=== PATIENT | female | born 1990 | race Caucasian/White ===

== ENCOUNTER 2020-06-05 10:11 | Emergency (ER) | payer OTHER, SELFPAY ==
--- NOTE | 2020-06-05 10:18 | ED.ABDPAIN ---
HPI - Abdominal Pain General Chief Complaint: Abdominal Pain Stated Complaint: abd pain Time Seen by Provider: 06/05/20 10:18 History of Present Illness HPI narrative: Intermittent lower abdominal pain for the past 2 weeks. Severe since earlier this evening. Associated with diarrhea and nausea. Seen at a hospital out of town a few days ago and had labs and CT, which she believes were normal. No fever, chills, hematuria, dysuria Related Data Home Medications Medication Instructions Recorded Confirmed etonogestrel 68 mg subdermal 1 implant SUBDERMAL ONCE 06/09/20 implant omeprazole 20 mg tablet,delayed 20 mg PO DAILY 06/09/20 06/09/20 release Allergies Allergy/AdvReac Type Severity Reaction Status Date / Time No Known Allergies Allergy Unknown Verified 06/09/20 08:42 Review of Systems Review of Systems: All systems reviewed & are unremarkable except as noted in HPI and below Constitutional: Constitutional: Denies fever(s) ENT: Denies sore throat Cardiovascular: Cardiovascular: Denies chest pain Respiratory: Respiratory: Denies dyspnea Gastrointestinal: Gastrointestinal: Reports abdominal pain, Reports diarrhea and Reports nausea Genitourinary: Genitourinary: Denies hematuria, Denies dysuria and Denies vaginal discharge Musculoskeletal: Musculoskeletal: Denies back pain Neurologic: Denies weakness [facility] Past Medical History Medical History Acute rheumatic arthritis Anxiety Fibromyalgia GERD (gastroesophageal reflux disease) PTSD (post-traumatic stress disorder) Surgical History Surgical History History of tonsillectomy Family History Family History Father Hypertension Malignant neoplasm of prostate Mother Hypertension Sibling Hypertension Social History Social History Smoking status: Never smoker Second hand tobacco smoke exposure: No Alcohol intake: never Substance use: current Substance use type: marijuana Gender identity (if verbalized by the patient): Female Spiritual care concerns: No Agree to blood products: Yes Exam Const: General: no acute distress and alert Orientation/consciousness: patient oriented x3 HENMT: Head: normal to inspection Chest: Chest palpation & inspection: normal inspection of the chest Resp: Effort & Inspection: normal respiratory effort Auscultation: clear to auscultation bilaterally Cardio: Rate: regular rate Rhythm: regular rhythm GI: GI Palp: Yes Soft to palpation and No Tenderness to palpation present (GI) Skin: General skin exam: normal color Neuro: General: patient oriented x3, moves all extremities, no focal motor deficits and CN's II-XI intact bilaterally Speech: Abnormal speech present Extrem: General: normal to inspection Psych: Affect: Anxious affect present Course Vital Signs Vital signs: Vital Signs Temperature 36.9 C 06/05/20 10:30 Pulse Rate 82 06/05/20 10:30 Respiratory Rate 17 06/05/20 10:30 Blood Pressure 149/89 H 06/05/20 10:30 Pulse Oximetry 100 06/05/20 10:30 Temperature 36.9 C 06/05/20 10:30 Pulse Rate 76 06/05/20 11:43 Respiratory Rate 18 06/05/20 11:43 Blood Pressure 136/94 H 06/05/20 11:43 Pulse Oximetry 99 06/05/20 11:43 MDM - Abdominal Pain Differential Diagnosis Differential diagnosis: Likely gastroenteritis, pancreatitis and other (UTI, IBS) Medical Records Attestation: I reviewed the patient's medical records. Lab Data Attestation: I reviewed the patient's lab results. Result diagrams: 06/05/20 10:28 06/05/20 10:28 Labs: Lab Results 06/05/20 06/05/20 06/05/20 Range/Units 10:28 10:28 10:28 WBC 10.4 H (4.5-10.0) K/mm3 RBC 4.95 (4.2-5.4) M/mm3 Hgb 15.2 H (1
[2020-06-05 10:30] VITALS: BP 149/89; PULSE 82; RESP 17; TEMP 36.9; O2SAT 100
[2020-06-05 10:40] LABS: Basophils Absolute Auto 0.1 K/mm3 (0.0-0.1); Basophils Percent Auto 0.9 % (0.2-1.2); Eosinophils Absolute Auto 0.1 K/mm3 (0-0.3); Eosinophils Percent Auto 1.2 % (0-4.4); Hematocrit 43.7 % (37.0-47.0); Hemoglobin 15.2 g/dL (12.0-15.0); Immature Granulocyte Absolute 0.04 K/mm3 (0.00-0.031); Immature Granulocyte Percent A 0.4 % (0-0.5); Lymphocytes Absolute Auto 2.41 K/mm3 (0.9-3.2); Lymphocytes Percent Auto 23.1 % (18.3-44.2); Mean Corpuscular HGB Conc 34.8 g/dl (32-36); Mean Corpuscular Hemoglobin 30.7 pg (26-34); Mean Corpuscular Volume 88.3 fl (80-100); Mean Platelet Volume 9.4 fl (7.4-10.4); Monocytes Absolute Auto 0.8 K/mm3 (0.1-0.6); Neutrophils Absolute Auto 6.9 K/mm3 (1.3-6.7); Neutrophils Percent Auto 66.4 % (45.5-73.1); Platelet Count Result 352 k/mm3 (150-375); Red Blood Count 4.95 M/mm3 (4.2-5.4); Red Cell Distribution Width 11.9 % (11.5-14.5); White Blood Count 10.4 K/mm3 (4.5-10.0)
[2020-06-05 10:43] LABS: Add Urine Microscopic? YES; Appearance Urine Cloudy (Clear); Bacteria Urine 1+ /hpf; Bilirubin Urine Negative (Negative); Blood Urine 2+ (Negative); Color Urine Yellow (Yellow); Glucose Urine UA Negative (Negative); Ketones Urine 1+ mg/dL (Negative); Leukocyte Esterase Ur Trace LEU/UL (Negative); Mucus Urine Heavy /lpf; Nitrate Urine Negative (Negative); Protein Urine Negative (Negative); RBC Urine 0-2 /hpf (0-2); Specific Grav Ur 1.018 (1.001-1.035); Squamous Epithelial Cell Urine Many /hpf (Few); Urobilinogen Urine Negative mg/dL (<2.0)
[2020-06-05 10:52] LABS: Alanine Aminotransferase 62 U/L (4-35); Albumin Level 4.7 g/dL (3.5-5.1); Alkaline Phosphatase 109 U/L (38-126); Anion Gap 12 mmol/L (8-16); Aspartate Amino Transferase 34 U/L (14-36); Bilirubin,Total 0.7 mg/dL (0.2-1.3); Blood Urea Nitrogen 7 mg/dL (7-17); Calcium 9.8 mg/dL (8.4-10.2); Carbon Dioxide 26 mmol/L (22-30); Chloride 103 mmol/L (98-107); Estimated CRCL calculation 112 ml/min; Estimated Glomerular Filt Rate > 60; Glucose 94 mg/dL (65-105); Lipase 40 U/L (23-300); Potassium 3.8 mmol/L (3.4-5.0); Sodium 141 mmol/L (137-145)
[2020-06-05] MEDS: ONDANSETRON INJ 4 MG/2 ML VIAL IV PUSH (10:57)
[2020-06-05] MEDS: DICYCLOMINE HCL INJ 20 MG/2 ML VIAL IM (10:57)
[2020-06-05] MEDS: LOPERAMIDE HCL 2 MG CAPSULE 4 MG PO (10:57)
[2020-06-05] MEDS: SODIUM CHLORIDE 0.9% IV 1,000 ML 999 ML IV CONT (10:58)
[2020-06-05] MEDS: NITROFURANTOIN MONOHYD MACROCR 100 MG CAP PO (11:37)
[2020-06-05 11:43] VITALS: BP 136/94; PULSE 76; RESP 18; O2SAT 99
--- NOTE | 2020-06-12 11:27 | PC.NURSE ---
LATE ENTRY This note is being entered to document information to the patient's record. The following information was omitted on [06/05/2020], by [ella]. ns complete at 1159.
== END 2020-06-05 11:44 | disposition home or self-care (01) ==
PROVIDERS: Emergency Provider Emergency Medicine
DX: N39.0 Urinary tract infection, site not specified (principal); M06.9 Rheumatoid arthritis, unspecified; M79.7 Fibromyalgia; K21.9 Gastro-esophageal reflux disease without esophagitis
CPT/HCPCS: 36415; 80053; 81001; 81025; 83690; 85025; 96361; 96372; 96374; 99284; A9270; J0500; J2405; J7030

== ENCOUNTER 2020-06-08 17:10 | Emergency (ER) | payer OTHER, SELFPAY ==
--- NOTE | ~2020-06-08 | CT_ITS ---
EXAMINATION: CT abdomen pelvis w con DATE: 06/08/2020 19:03 INDICATION: Left lower quadrant abdominal pain. TECHNIQUE: Computed tomography (CT) of the abdomen and pelvis was performed with 100 mL Omnipaque-350 intravenous contrast. Automated exposure control and iterative reconstruction technique were employe d. The dose-length product was 1283.30 mGy-cm. COMPARISON: None FINDINGS: Lung bases are clear. Heart size is normal. No pericardial or pleural effusion. Liver, gallbladder, s pleen, pancreas, bilateral adrenal glands are normal. A couple 1-2 mm nonobstructing stones in an inf erior calyx of the right kidney. 3 mm at least partially obstructing stone at the left ureterovesicul ar junction with mild left hydroureteronephrosis. There is some urothelial enhancement along the left ureter which could be reactive related to the stone passage or due to ascending urinary tract infect ion. Bladder, anteverted uterus and bilateral adnexa are unremarkable. Bowels including the appendix are normal. No free intraperitoneal gas or fluid. No pathologically enlarged abdominal or pelvic lymp hadenopathy. Mild thoracolumbar spondylosis with chronic appearing mild anterior wedging at T11 and T 12. IMPRESSION: 1. Bilateral nephrolithiasis with at least partially obstructing 3 mm stone at the left ureterovesicu lar junction with mild left hydronephrosis. Correlate with urinalysis to exclude associated ascending urinary tract infection. Reviewed, dictated and finalized at location A. T END ALIGNMENT SPECIALIST IMPRESSION: 1. Bilateral nephrolithiasis with at least partially obstructing 3 mm stone at the left ureterovesicular junction with mild left hydronephrosis. Correlate wit h urinalysis to exclude associated ascending urinary tract infection.
[2020-06-08 17:30] VITALS: BP 146/96; PULSE 81; RESP 18; TEMP 35.8; O2SAT 100
[2020-06-08] MEDS: SODIUM CHLORIDE 0.9% IV 1,000 ML 150 ML IV CONT (18:11)
[2020-06-08] MEDS: MORPHINE SULFATE (*CRX) 4 MG/ML INJ IV PUSH (18:11)
[2020-06-08 18:17] LABS: Basophils Percent Auto 0.4 % (0.2-1.2); Eosinophils Absolute Auto 0.1 K/mm3 (0-0.3); Eosinophils Percent Auto 0.6 % (0-4.4); Hematocrit 43.1 % (37.0-47.0); Hemoglobin 15.1 g/dL (12.0-15.0); Immature Granulocyte Absolute 0.09 K/mm3 (0.00-0.031); Immature Granulocyte Percent A 0.8 % (0-0.5); Lymphocytes Absolute Auto 1.69 K/mm3 (0.9-3.2); Mean Corpuscular Hemoglobin 30.5 pg (26-34); Mean Corpuscular Volume 87.1 fl (80-100); Mean Platelet Volume 9.7 fl (7.4-10.4); Monocytes Absolute Auto 0.7 K/mm3 (0.1-0.6); Monocytes Percent Auto 6.2 % (2.6-8.5); Neutrophils Absolute Auto 8.7 K/mm3 (1.3-6.7); Platelet Count Result 340 k/mm3 (150-375); Red Blood Count 4.95 M/mm3 (4.2-5.4); Red Cell Distribution Width 11.9 % (11.5-14.5); White Blood Count 11.3 K/mm3 (4.5-10.0)
[2020-06-08 18:28] LABS: Alanine Aminotransferase 66 U/L (4-35); Albumin Level 4.8 g/dL (3.5-5.1); Alkaline Phosphatase 110 U/L (38-126); Anion Gap 13 mmol/L (8-16); Aspartate Amino Transferase 44 U/L (14-36); Bilirubin,Total 0.6 mg/dL (0.2-1.3); Blood Urea Nitrogen 6 mg/dL (7-17); Carbon Dioxide 22 mmol/L (22-30); Chloride 103 mmol/L (98-107); Estimated CRCL calculation 111 ml/min; Estimated Glomerular Filt Rate > 60; Glucose 115 mg/dL (65-105); Lipase 43 U/L (23-300); Potassium 3.2 mmol/L (3.4-5.0); Sodium 138 mmol/L (137-145)
[2020-06-08 18:32] LABS: Lactic Acid Reflex 2.4 mmol/L (0.7-2.1)
[2020-06-08 18:44] LABS: Add Urine Microscopic? YES; Appearance Urine Cloudy (Clear); Bacteria Urine 1+ /hpf; Bilirubin Urine Negative (Negative); Blood Urine 3+ (Negative); Color Urine Red (Yellow); Glucose Urine UA Negative (Negative); Ketones Urine 2+ mg/dL (Negative); Leukocyte Esterase Ur Trace LEU/UL (Negative); Mucus Urine Few /lpf; Nitrate Urine Negative (Negative); Protein Urine 2+ mg/dL (Negative); RBC Urine >75 /hpf (0-2); Specific Grav Ur 1.014 (1.001-1.035); Squamous Epithelial Cell Urine Few /hpf (Few); Urobilinogen Urine Negative mg/dL (<2.0)
[2020-06-08 19:32] VITALS: BP 146/84; PULSE 84; RESP 16; O2SAT 99
--- NOTE | 2020-06-08 19:39 | ED.ABDPAIN ---
HPI - Abdominal Pain General Chief Complaint: Abdominal Pain Stated Complaint: abd pain/recent uti Time Seen by Provider: 06/08/20 17:42 Source: patient Mode of arrival: ambulatory Limitations: no limitations History of Present Illness HPI narrative: 30-year-old with a history of fibromyalgia here with complaints of left-sided abdominal pain on and off for past few days however today the pain got intense she states that the pain is mostly in the left lower abdomen. She denies any nausea, vomiting. No history of blood in the stool or in the urine. She states that she has been having diarrhea on and off for past few days. MD elicited complaint: abdominal pain Onset (ago): day(s) (1) Location: LLQ Severity: moderate Quality: cramping and aching Radiation: none Migration to: no migration Exacerbating factors: nothing Relieving factors: nothing Related Data Allergies Allergy/AdvReac Type Severity Reaction Status Date / Time No Known Allergies Allergy Unknown Verified 06/08/20 17:37 Review of Systems Review of Systems: All systems reviewed & are unremarkable except as noted in HPI and below Constitutional: Constitutional: Reports no additional constitutional complaints Cardiovascular: Cardiovascular: Reports no additional cardiovascular complaints Respiratory: Respiratory: Reports no additional respiratory complaints Gastrointestinal: Gastrointestinal: Reports as per HPI Genitourinary: Genitourinary: Reports no additional female genitourinary complaints Musculoskeletal: Musculoskeletal: Reports no additional musculoskeletal complaints Neurologic: Reports system reviewed and no additional complaints, except as documented PMFSH Past Medical History Medical History Acute rheumatic arthritis Fibromyalgia GERD (gastroesophageal reflux disease) Surgical History Surgical History History of tonsillectomy Social History Social History Smoking status: Never smoker Gender identity (if verbalized by the patient): Female Exam Narrative: Exam Narrative: GENERAL: Well-appearing, well-nourished, and in no acute distress. HEAD: Normocephalic, atraumatic. EYES: PERRLA and EOMI. NECK: Supple. CHEST: Clear to auscultation. No respiratory distress. HEART: Regular rate and rhythm. No murmur heard. Normal peripheral pulses. ABDOMEN: Soft, Mild tenderness in the left lower quadrant , nondistended, normal active bowel sounds. EXTREMITIES: Normal range of motion. No edema. SKIN: Warm, dry, no rash. NEURO: No focal deficits. Alert and oriented x3. PSYCH: Normal mood and affect. Course Course Emergency Course: Patient states her pain is much improved with morphine. I have discussed labs and CT findings with the patient. With however she still continues to have mild amount of pain I will give her IV Toradol 30 mg. Advised her to drink plenty of fluids take pain medication as prescribed Vital Signs Vital signs: Vital Signs Temperature 35.8 C L 06/08/20 17:30 Pulse Rate 81 06/08/20 17:30 Respiratory Rate 18 06/08/20 17:30 Blood Pressure 146/96 H 06/08/20 17:30 Pulse Oximetry 100 06/08/20 17:30 Temperature 35.8 C L 06/08/20 17:30 Pulse Rate 84 06/08/20 19:32 Respiratory Rate 16 06/08/20 19:32 Blood Pressure 146/84 H 06/08/20 19:32 Pulse Oximetry 99 06/08/20 19:32 MDM - Abdominal Pain Lab Data Result diagrams: 06/08/20 18:09 06/08/20 18:09 Labs: Lab Results 06/08/20 06/08/20 06/08/20 Range/Units 18:09 18:09 18:09 WBC 11.3 H (4.5-10.0) K/mm3 RBC 4.95 (4.2-5.4) M/mm3 Hgb 15.1 H (12.0-15.0) g/dL Hct 43.1 (37.0-47.0) % MCV 87.1 (80-100) fl MCH 30.5 (26-34) pg MCHC 35.0 (32-36) g/dl RDW 11.9 (11.5-14.5) % Plt Count 340 (150-375) k/mm3 MPV 9.7 (7
[2020-06-08] MEDS: KETOROLAC 30 MG/ML VIAL (*BKC) IV PUSH (19:55)
[2020-06-08 21:15] LABS: Reflex Lactic Acid Yes or No Add Lactic
== END 2020-06-08 20:09 | disposition home or self-care (01) ==
PROVIDERS: Emergency Provider Family Medicine; PCP Family Medicine
DX: N13.2 Hydronephrosis with renal and ureteral calculous obstruction (principal); M79.7 Fibromyalgia; M06.9 Rheumatoid arthritis, unspecified; K21.9 Gastro-esophageal reflux disease without esophagitis
CPT/HCPCS: 36415; 74177; 80053; 81001; 81025; 83605; 83690; 85025; 87086; 96374; 96375; 99284; J1885; J2270; J7030; Q9967

== ENCOUNTER 2020-07-17 12:35 | Outpatient (CLI) | payer OTHER, SELFPAY ==
[2020-07-17 14:15] LABS: Iron 130 ug/dL (37-170)
[2020-07-17 14:24] LABS: Percent Iron Saturation 30 % (20-50)
[2020-07-20 21:25] LABS: Ceruloplasmin 35 mg/dL (18-53)
[2020-07-21 22:22] LABS: Mitochondrial (M2) Ab (IgG) <=20.0 U (<=20.0)
== END 2020-07-17 12:36 | disposition home or self-care (01) ==
LOC: ANHLAB 12:39
PROVIDERS: PCP Family Medicine; Visit Provider Nurse Practitioner Family
DX: R79.89 Other specified abnormal findings of blood chemistry (principal)
CPT/HCPCS: 36415; 82104; 82390; 82728; 83520; 83540; 83550; 86038

== ENCOUNTER 2020-08-15 10:55 | Outpatient (CLI) | payer OTHER, SELFPAY ==
--- NOTE | ~2020-08-15 | US_ITS ---
EXAMINATION: US abdomen complete DATE: 08/15/2020 11:24 INDICATION: Abdominal pain TECHNIQUE: Multiple grayscale and Doppler ultrasound images of the abdomen were obtained. COMPARISON: CT, 06/08/2020 FINDINGS: The head and body of the pancreas are normal. The pancreatic tail is obscured by bowel gas. The liver is normal with normal echogenicity and echotexture. No surface nodularity. Normal hepatope zach flow in the main portal vein. The gallbladder is normal with no abnormal wall thickening, pericho lecystic fluid or stones. The normal common bile duct measures 6 mm. There was no sonographic Blackmon sign. The visualized portions of the aorta and inferior vena cava are normal. The right kidney measures 11.4 x 4.9 x 7.2 cm. The left kidney measures 11.1 x 5.4 x 5.7 cm. The kidn eys demonstrate normal parenchymal echogenicity. There is no hydronephrosis. The spleen is normal in appearance and measures 12.5 cm. IMPRESSION: 1. No sonographic correlate for the patient's symptoms. Reviewed, dictated and finalized at location A. OLOGY ASSISTANT
[2020-08-15 11:32] LABS: Basophils Absolute Auto 0.1 K/mm3 (0.0-0.1); Basophils Percent Auto 0.8 % (0.2-1.2); Eosinophils Absolute Auto 0.1 K/mm3 (0-0.3); Eosinophils Percent Auto 1.2 % (0-4.4); Hematocrit 41.9 % (37.0-47.0); Hemoglobin 14.3 g/dL (12.0-15.0); Immature Granulocyte Absolute 0.03 K/mm3 (0.00-0.031); Immature Granulocyte Percent A 0.4 % (0-0.5); Lymphocytes Percent Auto 28.3 % (18.3-44.2); Mean Corpuscular HGB Conc 34.1 g/dl (32-36); Mean Corpuscular Hemoglobin 30.4 pg (26-34); Mean Platelet Volume 9.1 fl (7.4-10.4); Monocytes Absolute Auto 0.7 K/mm3 (0.1-0.6); Monocytes Percent Auto 8.1 % (2.6-8.5); Neutrophils Absolute Auto 5.2 K/mm3 (1.3-6.7); Neutrophils Percent Auto 61.2 % (45.5-73.1); Platelet Count Result 303 k/mm3 (150-375); Red Blood Count 4.71 M/mm3 (4.2-5.4); Red Cell Distribution Width 12.2 % (11.5-14.5); White Blood Count 8.5 K/mm3 (4.5-10.0)
[2020-08-15 11:46] LABS: Alanine Aminotransferase 39 U/L (4-35); Albumin Level 4.7 g/dL (3.5-5.1); Alkaline Phosphatase 86 U/L (38-126); Anion Gap 7 mmol/L (8-16); Aspartate Amino Transferase 29 U/L (14-36); Bilirubin,Total 0.7 mg/dL (0.2-1.3); Blood Urea Nitrogen 9 mg/dL (7-17); Calcium 9.8 mg/dL (8.4-10.2); Carbon Dioxide 30 mmol/L (22-30); Chloride 105 mmol/L (98-107); Estimated Glomerular Filt Rate > 60; Glucose 92 mg/dL (65-105); Lipase 30 U/L (23-300); Sodium 142 mmol/L (137-145)
== END 2020-08-15 10:56 | disposition home or self-care (01) ==
PROVIDERS: PCP Family Medicine; Visit Provider Family Medicine
DX: R10.9 Unspecified abdominal pain (principal)
CPT/HCPCS: 36415; 76700; 80053; 83690; 85025

== ENCOUNTER 2020-08-18 11:29 | Outpatient (CLI) | payer OTHER, SELFPAY ==
--- NOTE | ~2020-08-18 | NM_ITS ---
. EXAMINATION: NM hepatobiliary w pharm DATE: 08/18/2020 13:46 INDICATION: Right upper quadrant abdominal pain. COMPARISON: Ultrasound 08/15/2020 TECHNIQUE: 5.048 mCi Tc-99m mebrofenin (Choletec) was administered intravenously. Scintigraphic imag es of the abdomen were obtained for one hour. Then, 1.6 mcg sincalide (Kinevac) IV was administered, and imaging was continued for 30 minutes. FINDINGS: There is normal clearance of radiotracer from the blood pool. There is homogeneous tracer u ptake by the liver. Activity progresses to the bowel and gallbladder. Gallbladder ejection fraction (GBEF) was 38%. Note that most patients with gallbladder dysfunction have GBEF < 35%, which overlaps with the broad normal range of 10-90%. IMPRESSION: 1. Normal hepatobiliary scintigraphy. Reviewed, dictated and finalized at location A. MONIA BOX OPERATOR
== END 2020-08-18 11:30 | disposition home or self-care (01) ==
PROVIDERS: PCP Family Medicine; Visit Provider Family Medicine
DX: R10.11 Right upper quadrant pain (principal); R11.10 Vomiting, unspecified
CPT/HCPCS: 78227; A9537; J2805

== ENCOUNTER → 2020-08-26 05:53 | Outpatient (CLI) | payer OTHER, SELFPAY ==
[2020-08-26 19:10] LABS: SARS-CoV-2 RNA PCR Negative
== END ==
PROVIDERS: Family Provider Internal Medicine; PCP Family Medicine; Visit Provider Internal Medicine Gastroenterology
DX: Z01.812 Encounter for preprocedural laboratory examination (principal); Z20.822 Contact with and (suspected) exposure to COVID-19
CPT/HCPCS: C9803; U0003; U0005

== ENCOUNTER 2020-08-29 00:17 | Day surgery (SDC) | payer OTHER, SELFPAY ==
[2020-08-07 09:55] VITALS: BMI 36.3
[2020-08-29 08:04] VITALS: BP 138/92; PULSE 105; RESP 16; TEMP 37.3; O2SAT 96; BMI 35.3
--- NOTE | 2020-08-29 08:17 | WPDANESEPPF ---
Anes - Initial Pre Proc Eval Procedure: Operation Date: 08/29/20 09:00 Proposed Procedures p Esophagogastroduodenoscopy & Colonoscopy - Zhang Gasca MD Date/Time: 08/29/20 08:17 Surgeon: Zhang Gasca MD Pre Op Diagnosis: GERD, Diarrhea, Weight loss, Abd Pain Patient Data Age: 30 Gender: F Height: 5 ft 6 in Weight: 99.3 kg Last Vital Signs Temp 37.3 C 08/29/20 08:04 Pulse 105 H 08/29/20 08:04 Resp 16 08/29/20 08:04 BP 138/92 H 08/29/20 08:04 Pulse Ox 96 08/29/20 08:04 Allergies Allergy/AdvReac Type Severity Reaction Status Date / Time No Known Allergies Allergy Unknown Verified 08/29/20 08:01 Home Medications Medication Instructions Recorded Confirmed Type etonogestrel 68 mg subdermal 1 implant SUBDERMAL ONCE 06/09/20 08/07/20 History implant omeprazole 20 mg tablet,delayed 20 mg PO DAILY #30 tablet 07/17/20 08/07/20 Rx release sodium,potassium,mag sulfates See Rx Instructions .ROUTE 07/27/20 Rx [Suprep Bowel Prep Kit] .COMPLEX #1 ml wheat dextrin [Benefiber (wheat 1 g PO DAILY 08/07/20 08/07/20 History dextrin)] Patient hx anesthesia problems: post op nausea/vomiting Family hx anesthesia problems: none PMFSH Past Medical History Medical History Acute rheumatic arthritis Anxiety Fibromyalgia GERD (gastroesophageal reflux disease) PTSD (post-traumatic stress disorder) Weight loss Surgical History Surgical History History of tonsillectomy Family History Family History Father Hypertension Malignant neoplasm of prostate Mother Hypertension Sibling Hypertension Social History Social History Smoking status: Never smoker Second hand tobacco smoke exposure: No Alcohol intake: never Substance use: current Substance use type: marijuana Last use: 08/06/20 Living arrangements: alone Gender identity (if verbalized by the patient): Female Spiritual care concerns: No Agree to blood products: Yes Anes - Eval Final PreProcedure Day of Procedure 08/29/20 08:17 Patient weight: obese Heart: regular rate and rhythm Lungs: clear to auscultation Airway: Mallampati scale class 1 Neurological: alert and oriented Last oral intake: >/= 8 hours ASA classification: III Emergent: no Anesthetic plan: proceed Anesthesia type and monitoring: general GIVS and standard monitoring Informed Consent: The patient's anesthetic plan and its attendant risks and benefits were discussed with the patient/family/POA. Questions were solicited and answers provided to the satisfaction of the patient/family/POA.
[2020-08-29] MEDS: LACTATED RINGERS 1,000 ML 150 ML IV CONT (08:18)
--- NOTE | 2020-08-29 08:44 | PM.HPGS ---
History of Present Illness History of Present Illness Consent: Risks, benefits, and alternatives have been discussed and questions answered. Patient agrees to proceed with procedure. Chief complaint: GERD, Diarrhea, Weight loss, Abd Pain Narrative: Ankita Pires is a 30 year old female with more nausea and vomiting, also loose stools. HIDA scan and CT Scan a/p unremarkable, serology for celiac negative. Also mild elevated liver enzymes with negative work up. Review of Systems Constitutional: Constitutional: Denies headache(s) and Denies weakness Eyes: Eyes: Denies blurry vision ENT: Reports Normal hearing present, Denies headache(s) and Denies neck pain Cardiovascular: Cardiovascular: Denies chest pain and Denies dyspnea Respiratory: Respiratory: Denies dyspnea Gastrointestinal: Gastrointestinal: Reports no additional gastrointestinal complaints Genitourinary: Genitourinary: Denies dysuria Musculoskeletal: Musculoskeletal: Denies neck pain Integumentary/Breasts: Skin/Breast: Denies dry skin Neurologic: Reports Normal hearing present, Denies headache(s) and Denies weakness Psychiatric: Psychiatric: Denies anxiety Endocrine: Endocrine: Denies change in body appearance Hematologic/Lymphatic: Hematologic/Lymphatic: Denies easy bleeding Allergic/Immunologic: Allergic/Immunologic: Denies urticaria PMFSH Past Medical History Medical History Acute rheumatic arthritis Anxiety Fibromyalgia GERD (gastroesophageal reflux disease) PTSD (post-traumatic stress disorder) Weight loss Surgical History Surgical History History of tonsillectomy Family History Family History Father Hypertension Malignant neoplasm of prostate Mother Hypertension Sibling Hypertension Social History Social History Smoking status: Never smoker Second hand tobacco smoke exposure: No Alcohol intake: never Substance use: current Substance use type: marijuana Last use: 08/06/20 Living arrangements: alone Gender identity (if verbalized by the patient): Female Spiritual care concerns: No Agree to blood products: Yes Meds Home Medications and Allergies Home Medications Medication Instructions Recorded Confirmed Type etonogestrel 68 mg subdermal 1 implant SUBDERMAL ONCE 06/09/20 08/07/20 History implant omeprazole 20 mg tablet,delayed 20 mg PO DAILY #30 tablet 07/17/20 08/07/20 Rx release sodium,potassium,mag sulfates See Rx Instructions .ROUTE 07/27/20 Rx [Suprep Bowel Prep Kit] .COMPLEX #1 ml wheat dextrin [Benefiber (wheat 1 g PO DAILY 08/07/20 08/07/20 History dextrin)] ondansetron HCl 4 mg tablet 4 mg PO Q8H PRN #90 tablet 08/29/20 Rx Allergies Allergy/AdvReac Type Severity Reaction Status Date / Time No Known Allergies Allergy Unknown Verified 08/29/20 08:01 Vital Signs Vital Signs - 24 hr 08/29/20 08:04 Temperature 99.2 F Pulse Rate 105 H Respiratory Rate 16 Blood Pressure 138/92 H Pulse Oximetry 96 Exam Const: General: comfortable and no acute distress HENMT: General nose exam: Normal nares present Eyes: General: appearance normal, both eyes and all related structures Neck: Neck: no JVD Resp: Auscultation: clear to auscultation bilaterally Cardio: Rate: regular rate Rhythm: regular rhythm GI: Inspection: non-distended GI Palp: Yes Soft to palpation Skin: General skin exam: normal color Neuro: General: gait normal Speech: normal speech Extrem: General: normal to inspection Psych: Mental Status: mental status grossly normal Assessment and Plan Assessment and plan (1) Abdominal pain: Code(s): R10.9 - Unspecified abdominal pain Status: Acute Assessment and Plan: egd and colonoscopy with
[2020-08-29 09:13] VITALS: BP 124/74; PULSE 84; RESP 20; O2SAT 100
[2020-08-29 09:23] VITALS: BP 132/85; PULSE 85; RESP 18; O2SAT 100
[2020-08-29 09:33] VITALS: BP 134/79; PULSE 63; RESP 22; O2SAT 100
== END 2020-08-29 09:48 | disposition home or self-care (01) ==
PROVIDERS: Family Provider Internal Medicine; PCP Family Medicine; Visit Provider Internal Medicine Gastroenterology
PROC: 0DJ08ZZ Inspection of Upper Intestinal Tract, Via Natural or Artificial Opening Endoscopic (ICD-10-PCS; CPT 43235; principal; 2020-08-29 09:00)
DX: R10.9 Unspecified abdominal pain (principal); R19.7 Diarrhea, unspecified; R11.2 Nausea with vomiting, unspecified; K21.9 Gastro-esophageal reflux disease without esophagitis; K44.9 Diaphragmatic hernia without obstruction or gangrene; K57.30 Diverticulosis of large intestine without perforation or abscess without bleeding; K64.8 Other hemorrhoids; M79.7 Fibromyalgia; I00 Rheumatic fever without heart involvement; R63.4 Abnormal weight loss; F41.9 Anxiety disorder, unspecified; F43.10 Post-traumatic stress disorder, unspecified; F12.90 Cannabis use, unspecified, uncomplicated
CPT/HCPCS: 43239; 45380; 88305; C9803; J2704; J7120; U0003; U0005

== ENCOUNTER 2020-09-19 07:45 | Outpatient (CLI) | payer OTHER, SELFPAY ==
--- NOTE | ~2020-09-19 | NM_ITS ---
EXAM: NM gastric emptying study DATE: 09/19/2020 13:20 INDICATION: Nausea and vomiting TECHNIQUE: A gastric emptying study was performed using the methodology of Americo STARKS, et al. J Nucl Med 2007; 48:568-572. The patient was given a meal consisting of 2 scrambled eggs labeled with 0.97 mCi Tc-99m sulfur colloid, 2 slices of toast, two packages of jam, and approximately 120 mL of water. Simultaneous anterior and posterior 1-min images of the abdomen were obtained with the patient supin e at multiple time points over a total period of 4 hours. The geometric mean of anterior and posterio r views was determined, and the percentage retention was calculated for each time point. COMPARISON: None. FINDINGS: Gastric retention of the radiotracer-labeled meal was 71%, 43%, and 19% at the 1-hour, 2-hour, and 4- hour time points, respectively. With this technique, apparent rapid gastric emptying is suggested by <30% gastric retention at 1 hour. Delayed gastric emptying is defined by gastric retention of >90% at 1 hour, >60% retention at 2 hours, or >10% retention at 4 hours. IMPRESSION: 1. Delayed gastric emptying. Reviewed, dictated and finalized at location B.
== END 2020-09-19 07:46 | disposition home or self-care (01) ==
LOC: ANHIMG 07:46
PROVIDERS: PCP Family Medicine; Visit Provider Internal Medicine Gastroenterology
DX: R11.2 Nausea with vomiting, unspecified (principal); R10.9 Unspecified abdominal pain; K30 Functional dyspepsia
CPT/HCPCS: 78264; A9541

== ENCOUNTER 2021-03-15 09:43 | Emergency (ER) | payer OTHER, SELFPAY ==
[2021-03-15 09:54] VITALS: BP 130/91; PULSE 79; RESP 16; TEMP 36.3; O2SAT 100
--- NOTE | 2021-03-15 10:19 | ED.URI ---
HPI - URI/Sore Throat General Chief Complaint: Upper Respiratory Infection Stated Complaint: Congestion,Sore Throat,Fever Source: patient and RN notes reviewed Limitations: no limitations History of Present Illness HPI Narrative: The vaccinated patient, is a non-smoker/nondrinker, presents with a shorter, 2-day history of congestion, measured fever 100.1 associate with mild cough. No sore throat, earache; no loss of taste/smell, CP, vomiting/diarrhea, S OB. Symptoms are mild, worse upon awakening in the morning Related Data Allergies Allergy/AdvReac Type Severity Reaction Status Date / Time No Known Allergies Allergy Unknown Verified 03/15/21 10:09 Review of Systems Review of Systems: The patient has been informed that they may have pre-hypertension or Hypertension based on a BP reading in the department. I recommend that the patient call the primary care provider listed on their discharge instructions or a physician of their choice this week to arrange follow up for further evaluation of possible pre-hypertension or Hypertension General/Constitutional: No weight loss, REPORTS fever Eyes: N0: Redness,discharge Ears/Nose/Throat: No: Epistaxis,ear discharge Respiratory: Denies: Hemoptysis Gastrointestinal: No Vomiting, Bleeding-rectal Skin: No Lumps, eruption Neurologic: No Focal Weakness,Sz Hematologic: Denies: Petechiae/Purpura Psychiatric: No: Suicida ideationl All Other Systems: Reviewed and Negative PMF Past Medical History Medical History Acute rheumatic arthritis Anxiety Fibromyalgia Gastroparesis GERD (gastroesophageal reflux disease) Nausea and vomiting in adult PTSD (post-traumatic stress disorder) Weight loss Surgical History Surgical History History of tonsillectomy Family History Family History Father Hypertension Malignant neoplasm of prostate Mother Hypertension Sibling Hypertension Social History Social History Smoking status: Never smoker Second hand tobacco smoke exposure: No Alcohol intake: never Substance use: current Substance use type: marijuana Last use: 08/06/20 Gender identity (if verbalized by the patient): Female Spiritual care concerns: No Agree to blood products: Yes Comments At time of signature, agree with nursing past medical, surgical, social and family history. There is no relevant family history pertinent to the presenting complaint Exam Narrative: General Appearance: Well appearing, Well nourished EYE: PERRLA, Conjunctiva clear Ears: Auditory canal normal, TM normal Nose: Rhinorrhea, Mucousal erythema Mouth/Throat: MM moist, Uvula midline, Pharyngeal erythema Neck: Supple, No adenopathy Respiratory: No respiratory distress, Breath sounds equal, Clear to auscultation Cardiovascular: RRR, No JVD Musculoskeletal: Non tender, Normal strength Skin: Warm, Dry Neurological: A&O x3, CN II-XII intact Psychiatric: Normal mood, Normal affect Course Vital Signs Vital signs: Vital Signs Temperature 97.3 F L 03/15/21 09:54 Pulse Rate 79 03/15/21 09:54 Respiratory Rate 16 03/15/21 09:54 Blood Pressure 130/91 H 03/15/21 09:54 Pulse Oximetry 100 03/15/21 09:54 Temperature 97.3 F L 03/15/21 09:54 Pulse Rate 79 03/15/21 09:54 Respiratory Rate 16 03/15/21 09:54 Blood Pressure 130/91 H 03/15/21 09:54 Pulse Oximetry 100 03/15/21 09:54 MDM - URI/Sore Throat Lab Data Labs: Lab Results 03/15/21 Range/Units 10:15 POC SARS CoV-2 Ag Negative (Negative) Influenza A Screen Negative Reference Range: Negative Influenza B Screen Negative
== END 2021-03-15 11:29 | disposition home or self-care (01) ==
PROVIDERS: Emergency Provider Emergency Medicine; PCP Family Medicine
DX: R50.9 Fever, unspecified (principal); Z20.822 Contact with and (suspected) exposure to COVID-19; M06.9 Rheumatoid arthritis, unspecified; M79.7 Fibromyalgia; K21.9 Gastro-esophageal reflux disease without esophagitis; K31.84 Gastroparesis
CPT/HCPCS: 87426; 87804; 99213; C9803; G0463

== ENCOUNTER → 2021-03-16 03:28 | Outpatient (CLI) | payer OTHER, SELFPAY ==
[2021-03-16 18:57] LABS: SARS-CoV-2 RNA PCR Negative
== END ==
PROVIDERS: PCP Family Medicine; Visit Provider Emergency Medicine
DX: Z20.822 Contact with and (suspected) exposure to COVID-19 (principal)
CPT/HCPCS: C9803; U0003; U0005

== ENCOUNTER 2021-09-16 11:35 | Emergency (ER) | payer OTHER, SELFPAY ==
[2021-09-16 11:42] VITALS: BP 119/74; PULSE 94; RESP 18; TEMP 36.7; O2SAT 98
--- NOTE | 2021-09-16 12:18 | ED.FEMALEGU ---
HPI - Female Genitourinary General Chief complaint: Urogenital-Female Stated complaint: Possible UTI Time Seen by Provider: 09/16/21 12:06 Source: patient and RN notes reviewed Mode of arrival: ambulatory Limitations: no limitations History of Present Illness HPI Narrative: Patient presents today complaining of 4-day history of dysuria, frequency, lower abdominal cramping intermittently. Denies hematuria, back pain, fever, nausea or vomiting, chills or sweats. She took 2 doses of Azo several days ago without much relief. MD elicited complaint: dysuria Related Data Home Medications Medication Instructions Recorded Confirmed etonogestrel [Nexplanon] 1 implant SUBDERMAL ONCE 09/16/21 09/16/21 Allergies Allergy/AdvReac Type Severity Reaction Status Date / Time No Known Allergies Allergy Unknown Verified 09/16/21 11:52 Review of Systems Review of Systems: CONSTITUTIONAL: Denies body aches, fever, chills, or sweats. EYES: Denies visual changes, redness, or discharge. ENT: Denies rhinorrhea, congestion, sore throat, or otalgia. CARDIOVASCULAR: Denies chest pain, palpitations, or edema. RESPIRATORY: Denies cough or dyspnea. GASTROINTESTINAL: Denies abdominal pain, nausea, vomiting, or diarrhea. GENITOURINARY: Denies hematuria.+ Dysuria, frequency, abdominal cramping SKIN: Denies rash, itching, or wounds. MUSCULOSKELETAL: Denies back pain, joint pain, or myalgia. NEUROLOGIC: Denies headache, numbness, tingling, or weakness. PSYCH: Denies depression or anxiety. [facility] Past Medical History Medical History Acute rheumatic arthritis Anxiety Fibromyalgia Gastroparesis GERD (gastroesophageal reflux disease) Nausea and vomiting in adult PTSD (post-traumatic stress disorder) Weight loss Surgical History Surgical History History of tonsillectomy Family History Family History Father Hypertension Malignant neoplasm of prostate Mother Hypertension Sibling Hypertension Social History Social History Smoking status: Never smoker Second hand tobacco smoke exposure: No Alcohol intake: never Substance use: current Substance use type: marijuana Last use: 08/06/20 Gender identity (if verbalized by the patient): Female Spiritual care concerns: No Agree to blood products: Yes Comments At time of signature, I have reviewed and agree with nursing past medical, surgical, social and family history unless otherwise noted. Please see nursing chart for further information. There is no relevant family history pertinent to the presenting complaint Exam Narrative: GENERAL: Well-appearing, well-nourished, and in no acute distress. HEAD: Normocephalic, atraumatic. EYES: EOMI. No redness or drainage. Conjunctivae normal. ENT: Mucous membranes pink and moist. NECK: Normal AROM. CHEST: No respiratory distress. Clear to auscultation. HEART: Regular rate and rhythm. No murmur appreciated. Normal peripheral pulses. ABDOMEN: Soft, nontender, nondistended, normal active bowel sounds.-CVAT MUSCULOSKELETAL: No bony tenderness. EXTREMITIES: Normal range of motion. No edema. SKIN: Warm, dry, no rash. Capillary refill normal. Normal skin turgor. NEURO: No focal deficits. Alert and oriented x3. Gait steady. PSYCH: Normal affect. No signs of depression or anxiety. Course Course Level of Care: Express Care Visit Vital Signs Vital signs: Vital Signs Temperature 98.0 F 09/16/21 11:42 Pulse Rate 94 09/16/21 11:42 Respiratory Rate 18 09/16/21 11:42 Blood Pressure 119/74 09/16/21 11:42 Pulse Oximetry 98 09/16/21 11:42 Temperature 98.0 F 09/16/21 11:42 Pulse Rate 94 09/16/21 11:42 Respiratory Rate 18 09/16/21 11:42 Blood Pressure 119/74
== END 2021-09-16 12:26 | disposition home or self-care (01) ==
PROVIDERS: Emergency Provider Nurse Practitioner; PCP Family Medicine
DX: N30.01 Acute cystitis with hematuria (principal); M79.7 Fibromyalgia; K21.9 Gastro-esophageal reflux disease without esophagitis; K31.84 Gastroparesis
CPT/HCPCS: 81003; 87086; 87088; 99213; G0463

== ENCOUNTER 2023-05-06 12:22 | Emergency (ER) | payer OTHER, SELFPAY ==
--- NOTE | 2023-05-06 12:25 | ED.URI ---
HPI - URI/Sore Throat General Stated Complaint: Sore Throat,Bilateral Ear Irritation,Headache Time Seen by Provider: 05/06/23 12:25 Source: patient Mode of arrival: ambulatory Limitations: no limitations History of Present Illness HPI Narrative: Charito is a 33-year-old female patient presenting to the clinic today with complaints of sore throat, bilateral ear pain, nasal congestion, and sinus headache x2 days. She reports she did not home COVID test on Friday when her symptoms began and it was negative. Denies any fever or chills. No known exposure to anyone with COVID, flu, or strep. MD elicited complaint: sore throat and nasal congestion Related Data Home Medications Medication Instructions Recorded Confirmed etonogestrel 68 mg subdermal 1 implant subdermal ONCE 09/16/21 09/16/21 implant (Nexplanon) Allergies Allergy/AdvReac Type Severity Reaction Status Date / Time No Known Allergies Allergy Unknown Verified 09/16/21 11:52 Review of Systems Review of Systems: Pertinent positives per HPI. Patient denies any fever, chills, rash, visual changes, dizziness, shortness of breath, chest pain, palpitations, nausea, vomiting, diarrhea, constipation, abdominal pain, or any urinary issues. [facility] Past Medical History Medical History Acute rheumatic arthritis Anxiety Fibromyalgia Gastroparesis GERD (gastroesophageal reflux disease) Nausea and vomiting in adult PTSD (post-traumatic stress disorder) Weight loss Surgical History Surgical History History of tonsillectomy Family History Family History Father Hypertension Malignant neoplasm of prostate Mother Hypertension Sibling Hypertension Social History Social History Smoking status: Never smoker Second hand tobacco smoke exposure: No Alcohol intake: never Substance use: current Substance use type: marijuana Last use: 08/06/20 Living arrangements: alone Occupation/Education: occupation Gender identity (if verbalized by the patient): Female Spiritual care concerns: No Agree to blood products: Yes Comments At the time of my signature, I reviewed and agree with the nursing past medical, surgical, social, and family history. There is no relevant family history pertinent to the patient complaint. Exam Narrative: General: Well-developed, obese in no apparent distress Head: Normocephalic, atraumatic Eyes: Pupils equally round and reactive to light bilaterally, EOM intact, sclera and conjunctive clear, no discharge, lids normal Ears: TMs intact and congested, ear canals clear, no drainage, grossly hearing normal. Nose: Nares patent, clear nasal discharge, no inflammation, no sinus tenderness. Mouth: Oral pharynx red, tonsils surgically absent, without lesions or masses, good dentition, MMM. Neck: Supple, trachea midline, no enlargement of anterior or posterior cervical nodes, no thyroid masses or goiter palpable. Cardio: Regular rate and rhythm, s1 and s2 normal, no murmur appreciated. Resp: Clear to auscultation bilaterally, no rhonchi, rales, wheezing or rubs Course Course Emergency Course: Portions of this record may have been created with voice recognition software. Level of Care: Express Care Visit Vital Signs Vital signs: Vital signs reviewed MDM - URI/Sore Throat MDM Narrative Medical decision making narrative: At the time of visit patient is resting comfortably on the exam table. Patient is nontoxic appearing. strep test was negative in the clinic today. Will send for culture. I suspect patient has URI/eustachian tube dysfunction. Will send in prescription for prednisone. Supportive measures were discussed with the patient she voiced understanding the discharge ins
[2023-05-06 12:28] VITALS: BP 128/65; PULSE 70; RESP 18; TEMP 36.6; O2SAT 99
== END 2023-05-06 12:55 | disposition home or self-care (01) ==
PROVIDERS: Emergency Provider Nurse Practitioner Family; PCP Family Medicine
DX: J06.9 Acute upper respiratory infection, unspecified (principal); H69.93 Unspecified Eustachian tube disorder, bilateral; M79.7 Fibromyalgia; K21.9 Gastro-esophageal reflux disease without esophagitis; K31.84 Gastroparesis
CPT/HCPCS: 87081; 87880; 99213; G0463